=== PATIENT | female | born 1970 | race Caucasian/White ===

== ENCOUNTER 2018-02-23 17:54 | Emergency (ER) | payer OTHER ==
[~2018-02-23] VITALS: Ht 165.1 cm; Wt 68.0 kg
== END 2018-02-23 18:00 | disposition home or self-care (01) ==
LOC: ER 17:54
DX: L50.9 Urticaria, unspecified (principal)
CPT/HCPCS: A4663

== ENCOUNTER 2018-05-10 22:20 | Emergency (ER) | payer OTHER ==
[~2018-05-10] VITALS: Ht 157.5 cm; Wt 65.8 kg
--- NOTE | 2018-05-10 22:40 | NUR ---
Pt ambulated to ER with stable gait with the c/o sorethroat cough and nasal congestion x2 days. Pt denies CP, SOB, N/V/D. Safe environment implemented.
[2018-05-10 22:58] VITALS: BP 110/82
--- NOTE | 2018-05-10 22:58 | NUR ---
Patient discharged to home in stable conditon. Written and verbal after care instructions given. Patient verbalizes understanding of instructions. Patient ambulated out of ER with stable gait.
== END 2018-05-10 22:59 | disposition home or self-care (01) ==
LOC: ER 22:20
DX: J06.9 Acute upper respiratory infection, unspecified (principal)
CPT/HCPCS: A4663

== ENCOUNTER 2019-12-01 21:29 | Emergency (ER) | payer OTHER ==
[~2019-12-01] VITALS: Ht 165.1 cm; Wt 80.3 kg
[2019-12-01] MEDS ORDERED: [UNRECOGNIZED DRUG - REMARK] (21:49)
[2019-12-01] MEDS ORDERED: [UNRECOGNIZED DRUG - REMARK] (21:49)
--- NOTE | 2019-12-01 22:08 | NUR ---
ERMD at bedside for MSE.
[2019-12-01] MEDS ORDERED: IBUPROFEN 800 MG TABLET PO ONE (22:45)
[2019-12-01 22:53] LABS: BASOPHILS % (AUTO) 0.3 % (0.0-2.0); EOSINOPHILS % (AUTO) 0.2 % (0.0-7.0); HEMATOCRIT 39.8 % (31.2-41.9); HEMOGLOBIN 13.3 g/dL (10.9-14.3); LYMPHOCYTES # (AUTO) 0.8 K/uL (20.0-40.0); LYMPHOCYTES % (AUTO) 26.5 % (20.5-51.5); MEAN CORPUSCULAR HGB CONC 33 g/dL (32.3-35.6); MEAN CORPUSCULAR VOLUME 83.7 fL (75.5-95.3); MONOCYTES # (AUTO) 0.5 K/uL (2.0-10.0); MONOCYTES % (AUTO) 14.6 % (0.0-11.0); NEUTROPHILS # (AUTO) 1.9 K/uL (1.8-8.9); NEUTROPHILS % (AUTO) 58.4 % (38.5-71.5); PLATELET COUNT (AUTO) 131 K/uL (179-408); RED BLOOD CELL COUNT(AUTO) 4.76 MIL/uL (3.63-4.92); WHITE BLOOD COUNT (AUTO) 3.2 K/uL (3.8-11.8)
[2019-12-01 22:57] LABS: CREATININE 0.9 mg/dL (0.6-1.3); POTASSIUM 3.3 mmol/L (3.5-5.1)
[2019-12-01] MEDS ORDERED: POTASSIUM BICARBONATE/CIT AC 25 MEQ TABLET.EFF PO ONE (23:00)
[2019-12-01 23:03] LABS: BILIRUBIN,DIRECT 0.1 mg/dL (0.0-0.2); BILIRUBIN,TOTAL 0.4 mg/dL (0.2-1.0)
[2019-12-01] MEDS ORDERED: POTASSIUM BICARBONATE/CIT AC 25 MEQ TABLET.EFF ONE (23:27)
[2019-12-01] MEDS ORDERED: IBUPROFEN 800 MG TABLET ONE (23:27)
[2019-12-01] MEDS ORDERED: HYDROCODONE/APAP 10-325 MG TABLET ONE (23:29)
[2019-12-01] MEDS ORDERED: HYDROCODONE/APAP 10-325 MG TABLET PO ONE (23:30)
--- NOTE | 2019-12-01 23:35 | NUR ---
Patient discharged to home in stable condition. Written and verbal after care instructions given. Patient verbalizes understanding of instructions. Stressed follow up or return to ER for worsening s/s. Patient ambulated with stable gait.
[2019-12-01 23:37] VITALS: BP 123/79
--- NOTE | 2019-12-04 14:15 | NUR ---
Patient's family notified by Dr. Cook
== END 2019-12-01 23:37 | disposition home or self-care (01) ==
LOC: ER 21:31
DX: U07.1 COVID-19 (principal); M54.32 Sciatica, left side; G25.81 Restless legs syndrome; Z79.899 Other long term (current) drug therapy
CPT/HCPCS: 36415; 80048; 80076; 85025; 99284; U0003; A4663